=== PATIENT | female | born 1975 | race Asian ===

== ENCOUNTER 2018-12-23 05:55 | Day surgery (SDC) | payer MEDICAID, OTHER ==
[2018-12-23] VITALS (10 sets, daily range): BP systolic 101–138; BP diastolic 64–85; PULSE 64–82; RESP 13–55; Ht 160 cm; Wt 57.3 kg
[~2018-12-23] VITALS: Ht 160 cm; Wt 57.3 kg
[~2018-12-23 05:55] MED LIST: FERR-18 PO; PREN-39 PO
[2018-12-23] MEDS ORDERED: BUPIVACAINE 0.25% (MPF) 30 ML INJ ONE (06:49)
[2018-12-23] MEDS ORDERED: NORG1TAB PO (07:01)
--- NOTE | 2018-12-23 07:16 | PREAC ---
Date/Time of Note Date/Time of Note DATE: 12/23/18 TIME: 07:16 Anesthesia Eval and Record Evaluation Time Pre-Procedure Interview DATE: 12/23/18 TIME: 07:16 Age 43 Sex female NPO: 8 hrs Preoperative diagnosis Voluntary sterilization Planned procedure BTL Past Medical History Past Medical History: None Surgery & Anesthesia Issues No known issue Meds Anticoagulation: No Beta Manpreet within 24 hr: No Reason Beta Manpreet not given: Pt. not on B-Manpreet Reported Medications Norgestimate-Ethinyl Estradiol (Ortho Tri-Cyclen Lo Tablet) 1 Each Tablet, 1 EACH PO DAILY, TAB 12/23/18 Discontinued Reported Medications Ferrous Sulfate (Iron) 325 Mg Tablet, 325 MG PO DAILY, #1 07/15/12 Vits W-Ca,Fe,Fa(<1MG) ( Vitamins) 1 Tab Tablet, 1 TAB PO DAILY, #1 07/15/12 [None] No Conflict Check 12/24/11 Meds reviewed: Yes Allergies Coded Allergies: Sulfa (Sulfonamide Antibiotics) (Verified Allergy, Severe, HIVES, NAUSEA, DIZZINESS, 12/23/18) PER PT Allergies Reviewed: Yes Labs/Studies Labs Reviewed: Reviewed by anesthesiologist test: Negative Pre-procedure Exam Last vitals Vital Signs Date Temp Pulse Resp B/P (MAP) Pulse Ox O2 O2 Flow FiO2 Time Delivery Rate 12/23/18 98.3 79 18 120/85 100 Room Air 07:05 (97) Airway: Adequate mouth opening Mallampati: Mallampati I Teeth: Normal Lung: Normal Heart: Normal ASA Physical Status ASA physical status: 1 Emergency: None Planned Anesthetic General/MAC: ETT Planned Pain Management Parenteral pain med Pre-operative Attestations Prior to commencing anesthesia and surgery, the patient was re-evaluated, there was verification of: *The patient's identity *The results of appropriate recent lab work and preoperative vital signs *The above evaluation not changing prior to induction *Anesthetic plan, risk benefits, alternative and complications discussed with patient/family; questions answered; patient/family understands, accepts and wishes to proceed. CHRISTOPHER DANIEL MD Dec 23, 2018 07:16
[2018-12-23] MEDS ORDERED: LIDOCAINE 2% (SDV) 5 ML INJ ONE (07:37)
[2018-12-23] MEDS ORDERED: GLYCOPYRROLATE 0.4 MG INJ ONE ×2 (07:37→08:06)
[2018-12-23] MEDS ORDERED: ROCURONIUM 50 MG INJ ONE (07:37)
[2018-12-23] MEDS ORDERED: SUCCINYLCHOLINE CHLORIDE 100 MG/5 ML SYG IV ONE (07:37)
[2018-12-23] MEDS ORDERED: PROPOFOL 20 ML ONE (07:37)
[2018-12-23] MEDS ORDERED: MEPERIDINE 100 MG INJ ONE (07:38)
[2018-12-23] MEDS ORDERED: METOCLOPRAMIDE 10 MG INJ ONE (07:56)
[2018-12-23] MEDS ORDERED: CEFAZOLIN 1 GM INJ ONE (07:56)
[2018-12-23] MEDS ORDERED: ONDANSETRON 4 MG INJ ONE (07:56)
[2018-12-23] MEDS ORDERED: NEOSTIGMINE 10 MG INJ ONE (08:06)
[2018-12-23] MEDS ORDERED: DIPHENHYDRAMINE 50 MG INJ IV PRN (08:30)
[2018-12-23] MEDS ORDERED: OXYCODONE/ACETAMINOPHEN (5/325) TAB PO PRN ×2 (08:30)
[2018-12-23] MEDS ORDERED: FENTAnyl 50 MCG/ML VIAL IV PRN ×3 (08:30)
[2018-12-23] MEDS ORDERED: ONDANSETRON 4 MG INJ IV PRN (08:30)
[2018-12-23] MEDS ORDERED: MIDAZOLAM 1 MG/ML 2 ML INJ IV PRN (08:30)
[2018-12-23] MEDS ORDERED: HYDROmorphONE 1 MG/5 ML IV SYRINGE IV PRN ×2 (08:30)
[2018-12-23] MEDS ORDERED: MEPERIDINE 25 MG INJ IV PRN (08:30)
[2018-12-23] MEDS ORDERED: METOCLOPRAMIDE 10 MG INJ IV PRN (08:30)
[2018-12-23] MEDS ORDERED: HYDROmorphONE 1 MG/5 ML IV SYRINGE IV ONE (08:32)
[2018-12-23] MEDS: HYDROmorphONE 1 MG/5 ML IV SYRINGE IV PRN ×2 (08:46→08:50)
--- NOTE | 2018-12-23 09:32 | OPR ---
Operative Report Planned Procedure Procedure date Dec 23, 2018 Procedure(s) mini BTL Performed by see signature line Interactive Digital Media Specialist: A Pre-procedure diagnosis multiparity [id number] Anesthesia Type: Ledhc3t general Post-Procedure Post-procedure diagnosis multiparity Findings Live Baby [], Apgars [] and [], weight [], position [], [] presentation []cord. Estimated Blood Loss: 0 - 10 mls Specimen(s) none Grafts/Implant(s) none Complication(s) none Procedure Description pt. was under general anesthesia and a suprapubic incision was made and extended to the fascia. Fascia was dissected bilaterally and peritoneium was entered. With the aid of the retractor the right tube was grabed with jud and o plain tie was used to tie the tube twice and cut with the metzembum. The same procedure was done for the left tube. The fascia was closed with one vicryl and the skin was closed with 3 monocryl . 10 cc of local was injected. GRECIA MILLER MD Dec 23, 2018 09:32
--- NOTE | 2018-12-23 09:57 | PAC ---
Date/Time of Note Date/Time of Note DATE: 12/23/18 TIME: 09:52 Post-Anesthesia Notes Post-Anesthesia Note Last documented vital signs Vital Signs Date Temp Pulse Resp B/P (MAP) Pulse Ox O2 O2 Flow FiO2 Time Delivery Rate 12/23/18 98.3 79 18 120/85 100 Room Air 07:05 (97) Activity: WNL Respiratory function: WNL Cardiovascular function: WNL Mental status: Baseline Pain reasonably controlled: Yes Hydration appropriate: Yes Nausea/Vomiting absent: Yes Comments TEMP: 98.3, BP: 102/67, HR: 69, RR: 15, PULSE OX: 99 CHRISTOPHER DANIEL MD Dec 23, 2018 09:57
== END 2018-12-23 10:00 | disposition home or self-care (01) ==
LOC: SDS 05:55
PROVIDERS: ATTEND Obstetrics & Gynecology
DX: Z30.2 Encounter for sterilization (principal)
CPT/HCPCS: 58600; 85025; 86900; 86901; 88302; J0690; J1170; J2175; J2405; J2710; J2765; Z7512; Z7610